=== PATIENT | female | born 1970 | race Caucasian/White ===

== ENCOUNTER 2021-09-07 11:59 | Emergency (ER) | payer OTHER ==
[~2021-09-07] VITALS: Ht 165.1 cm; Wt 74.8 kg
--- NOTE | ~2021-09-07 | EMS ---
[place] [address] EMS Patient Care Report Name: ELSIE GODOY Room #: DEP KELVIN Cruz#: [id number] Admission: 09/07/21 Attend Phys: Discharge: 09/07/21 Date of : 68 Report #: [id number] THIS REPORT FOR: //name// Report Transmitted: 09/08/2021 10:07 EMS Care Summary [place], [place]/[facility] Incident [id number] @ 09/07/2021 11:35 Incident Location [address] [place] [address] Patient ELSIE GODOY Female, 51 Years 1970 Patient Address [address] [place] [address] Patient History Asthma,Diabetes,Depression, Patient Allergies No known allergies, Patient Medications Insulin, Metformin, Albuterol, Zoloft, Chief Complaint Unconscious Disposition Transported No Lights/Rison Dispatch Reason Unconscious/Fainting Transported To [facility] Narrative Upon arrival to scene the PT was in her mini van responsive to pain. PT has a history of low blood sugar. PT in the past has very bad veins and has needed an IO to get her sugar up. PT had a GCS of 12. PT was lifted and placed on the cot. Once in the ambulance PT's vital signs were monitored [place] [address] EMS Patient Care Report Name: ELSIE GODOY Room #: DEP [facility]#: [id number] Admission: 09/07/21 Attend Phys: Discharge: 09/07/21 Date of : 68 Report #: [id number] total were attempted and unsuccessful. PT's blood sugar was reading low for us the entire time. IO was not attempted PT's vital signs were stable at this time. PCR was given to [place] prior to our arrival. Upon arrival PT status had not changed. Initial Vitals @11:54P: 82,R: 20,BP: 114/84,Pain: 0/10,GCS: 12,Glucose: -1,SpO2: 96,Revised Trauma: 11, @11:49P: 20,R: 20,BP: 126/84,Pain: 0/10,GCS: 12,SpO2: 95,Revised Trauma: 11, Assessments @12:05MENTAL:Unresponsive,SKIN:Diaphoresis,HEENT:Head/Face: No Abnormalities,Neck/Airway: No Abnormalities,LUNG SOUNDS:General: No Abnormalities,ABDOMEN:General: No Abnormalities,PELVIS//GI:No Abnormalities,EXTREMITIES:Left Arm: No Abnormalities,Right Arm: No Abnormalities,Left Leg: No Abnormalities,Right Leg: No Abnormalities,PULSE:Radial: 2+ Normal,NEURO:No Abnormalities, Impression Diabetic Hypoglycemia Procedures @12:07 ALS Assessment Response: UnchangedSucceeded @11:42 IV Therapy - Saline Lock 5cc (22 ga) Site: Antecubital-Left Response: UnchangedFailed @11:45 IV Therapy - Saline Lock 5cc (22 ga) Site: Hand-Left Response: UnchangedFailed @11:52 IV Therapy - Saline Lock 5cc (22 ga) Site: Hand-Right Response: UnchangedFailed Timeline 11:33,Call Received 11:33,Dispatch Notified 11:35,Dispatched 11:36,En Route 11:37,On Scene 11:38,At Patient 11:42,IV Therapy - Saline Lock 5cc 22 ga Site: Antecubital-Left,Response: UnchangedFailed, 11:45,IV Therapy - Saline Lock 5cc 22 ga Site: Hand-Left,Response: UnchangedFailed, 11:47,Depart Scene 11:49,BP: 126/84 M,PULSE: 20,RR: 20 R,SPO2: 95 Ox,ETCO2: ,BG: ,PAIN: 0,GCS: 12, 11:52,IV Therapy - Saline Lock 5cc 22 ga Site: Hand-Right,Response: UnchangedFailed, [facility] [address] [place] [address] EMS Patient Care Report Name: ELSIE GODOY Room #: DEP KELVIN Cruz#: [id number] Admission: 09/07/21 Attend Phys: Discharge: 09/07/21 Date of : 68 Report #: [id number] 11:54,BP: 114/84 M,PULSE: 82,RR: 20 R,SPO2: 96 Ox,ETCO2: ,BG: -1,PAIN: 0,GCS: 12, 11:55,At Destination 12:07,ALS Assessment,Response: UnchangedSucceeded, 12:15,Call Closed Disclaimer v1.1 Copyright 2021 [employer] This EMS Care Summary contains data elements from the applicable legal record (which may be displayed differently). It is designed to provide pertinent information for the following purposes: continuity of care, clinical quality, and state data reporting. The complete legal record is available to ED staff and administrators of the receiving hospital in [employer]'s Patient Tracker. All data is provided "as is."
[2021-09-07 12:41] LABS: URINE BILIRUBIN NEGATIVE (Negative); URINE BLOOD NEGATIVE (Negative); URINE CLARITY CLEAR; URINE COLOR YELLOW; URINE GLUCOSE-RANDOM* 3+ (Negative); URINE KETONES NEGATIVE (Negative); URINE LEUKOCYTES-REFLEX NEGATIVE (Negative); URINE NITRITE-REFLEX NEGATIVE (Negative); URINE PROTEIN (DIPSTICK) NEGATIVE (Negative); URINE UROBILINOGEN 0.2 E.U./dl (0.2-1.0)
[2021-09-07 13:26] LABS: CALCIUM 9.8 mg/dL (8.5-10.1); CREATININE 0.7 mg/dL (0.6-1.0)
[2021-09-07 13:31] LABS: ALBUMIN 3.7 g/dL (3.4-5.0); POTASSIUM 3.3 mmol/L (3.5-5.1); TOTAL BILIRUBIN 0.3 mg/dL (0.2-1.0); TOTAL PROTEIN 7.7 g/dL (6.4-8.2)
[2021-09-07 13:39] LABS: HEMATOCRIT 30.1 % (37.0-47.0); HEMOGLOBIN 10.1 gm/dL (12.0-15.0); MCH 27.2 pg (26.0-34.0); MCHC 33.7 g/dL (28.0-37.0); MCV 80.6 fL (80.0-100.0); RBC 3.73 mil/uL (4.20-5.00); RDW 15.9 % (10.5-14.5); WBC 7.4 thou/uL (4.0-11.0)
[2021-09-07] MEDS ORDERED: TEST STRIPS1 EACH TOP (14:49)
[2021-09-07] MEDS ORDERED: GLUCOMETER (14:49)
[2021-09-07] MEDS ORDERED: FREESTYLE LANC1 EACH MISCELL (14:49)
[2021-09-07 15:19] VITALS: BP 153/72
== END 2021-09-07 15:39 | disposition home or self-care (01) ==
LOC: EDBD 11:59 → ER 11:59
PROVIDERS: Student in an Organized Health Care Education/Training Program
DX: E16.2 Hypoglycemia, unspecified (principal); Z88.2 Allergy status to sulfonamides